=== PATIENT | female | born 1985 | race Caucasian/White ===

== ENCOUNTER → 2017-02-21 | Outpatient (CLI) | payer OTHER ==
--- NOTE | 2017-02-21 15:37 | RADIOLOGY REPORT (SQ) ---
EXAM DESCRIPTION: HYSTEROSALPINGOGRAM; HYSTERO CATH/INJECTION COMPLETED DATE/TIME: 02/21/2017 1:32 pm REASON FOR STUDY: INFERTILITY (N97.9) N97.9 FEMALE INFERTILITY, UNSPECIFIED COMPARISON: None. PROCEDURE: PRE-PROCEDURE: Procedure was explained to the patient. She was told to expect cramping du ring the procedure, and possible spotting post procedure. PROCEDURE: The cervix was prepped in sterile fashion. Under direct visual inspection, the cervix was cannulated with the hysterosalpingogram catheter and contrast injected. TECHNIQUE: Temporal fluoroscopic images acquired during the procedure stored to PACS. FLUOROSCOPY TIME: Less than 1 second 21 digital radiographic images saved to PACS. LIMITATIONS: None. FINDINGS: UTERUS: No identified anomalies. No synechia. RIGHT ADNEXA: Normal size fallopian tube. Free spill of contrast into the peritoneal cavity. LEFT ADNEXA: Normal size fallopian tube. Free spill of contrast into the peritoneal cavity. POST PROCEDURE: The patient tolerated the procedure with no adverse effects. IMPRESSION: NORMAL HYSTEROSALPINGOGRAM. COMMENT: Quality ID [id number]: Final reports for procedures using fluoroscopy that document radiation exp osure indices, or exposure time and number of fluorographic images (if radiation exposure indices are not available) TECHNICAL DOCUMENTATION: JOB ID: [id number] [employer]- All Rights Reserved
== END ==
LOC: RAD 12:48
PROVIDERS: ATTEND Obstetrics & Gynecology
DX: N97.9 Female infertility, unspecified (principal)
CPT/HCPCS: 58340; 74740

== ENCOUNTER 2017-12-06 18:40 | Emergency (ER) | payer OTHER ==
[2017-12-06 18:46] VITALS: BP 137/83
[2017-12-06] MEDS ORDERED: HYDROCODONE/ACETAMINOPHEN 5-325 MG (6 TAB/ER DISP) PO PRN (19:34)
--- NOTE | 2017-12-06 19:36 | ER Document Report ---
ED Respiratory Problem - General Chief Complaint: Painful Cough Stated Complaint: SORE THROAT Time Seen by Provider: 12/06/17 19:11 Mode of Arrival: Ambulatory Information source: Patient Notes: 32-year-old female presented ED for complaint of severe sore throat that is keeping her awake for the last 4 days. She states she went to urgent care today and was diagnosed with walking pneumonia bronchitis. She was treated with Z-[place] Tessalon Perles ibuprofen she has been taken NyQuil she was also given albuterol inhaler and Flonase. She states none of this is helping her sore throat she states she is also gargling with warm water, gargling with mouthwash and nothing is helping with her sore throat. She has not slept in at least 4 days. Patient is alert and oriented respirations regular unlabored she does have a dry cough nonproductive. Her lungs are actually clear. She does have an upper respiratory infection with a sore throat. She does not have any wheeze. TRAVEL OUTSIDE OF THE [place] IN LAST 30 DAYS: No - HPI Patient complains to provider of: Cough, Other Onset: Other - 4 days sore throat Duration: Continuous, Worse/persistent Initiating Event: URI, Other - She states she was diagnosed with walking pneumonia at the urgent care and started on a azithromycin Severity: Moderate Pain Level: 4 Cough: Nonproductive Sputum amount: None At home treatment: Bronchodilators, Inhaled steroids, Oral steroids Associated symptoms: Congestion, Cough, Fever, PND, Runny nose, Sore Throat Similar symptoms previously: Yes Recently seen / treated by doctor: Yes - Urgent care today - Related Data Allergies/Adverse Reactions: No Known Allergies Allergy (Unverified 02/12/15 11:13) Past Medical History - General Information source: Patient - Social History Smoking Status: Former Smoker Cigarette use (# per day): No Chew tobacco use (# tins/day): No Smoking Education Provided: No Frequency of alcohol use: None Drug Abuse: None Lives with: Family Family History: None Patient has suicidal ideation: No Patient has homicidal ideation: No - Past Medical History Cardiac Medical History: Reports: None Pulmonary Medical History: Reports: Hx Bronchitis - Diagnosed urgent care 2017, Hx Pneumonia - Diagnosed with walking pneumonia by urgent care on 2017 EENT Medical History: Reports: None Neurological Medical History: Reports: None Endocrine Medical History: Reports: None Renal/ Medical History: Reports: None Malignancy Medical History: Reports: None GI Medical History: Reports: None Musculoskeltal Medical History: Reports None Skin Medical History: Reports None Psychiatric Medical History: Reports: None Traumatic Medical History: Reports: None Infectious Medical History: Reports: None Surgical Hx: Negative Past Surgical History: Reports: None - Immunizations Immunizations up to date: Yes Hx Diphtheria, Pertussis, Tetanus Vaccination: Yes Review of Systems - Review of Systems Constitutional: Fever, Recent illness EENT: Nose discharge, Sinus pressure, Sinus discharge, Throat pain Respiratory: Cough. denies: Sputum Physical Exam - Vital signs Vitals: Temp Pulse Resp BP Pulse Ox 99.2 F 89 16 137/83 H 100 12/06/17 18:45 12/06/17 18:45 12/06/17 18:45 12/06/17 18:45 12/06/17 18:45 - HEENT Head: Normocephalic, Atraumatic Eyes: Normal Pupils: PERRL Ears: Normal External canal: Normal Tympanic membrane: Normal Sinus: Normal Nasal: Purulent discharge, Swelling Mouth/Lips: Normal Mucous membranes: Normal Pharynx: Post nasal drainage. No: Erythema, Exudate, Retropharyngeal abscess, Tonsillar hypertrophy, Uvular edema, Potential airway comprom. Neck: Normal - Respiratory Respiratory status: No respiratory distress Chest status: Nontender Breath sounds: Nonproductive cough. No: Productive cough, Rales, Rhonchi, Stridor, Wheezing Chest palpation: Normal Course - Re-evaluation Re-evalutation: 12/06/17 20:25 She came to the ED because she states that her throat is so sore that she cannot stand it anymore she cannot sleep and she is coughing keeping her from been able to sleep. Patient was given a [place] dispense pack and told to take 1 each night as needed for sleep due to the sore throat. She was told to use the medications that she was given at the urgent care for her "bronchitis and pneumonia ". - Vital Signs Vital signs: Temp Pulse Resp BP Pulse Ox 99.2 F 89 16 137/83 H 100 12/06/17 18:45 12/06/17 18:45 12/06/17 18:45 12/06/17 18:45 06/26/18 18:45 Discharge - Discharge Clinical Impression: Sore throat (viral) Condition: Stable Disposition: HOME, SELF-CARE Instructions: Family Physicians / Practices Additional Instructions: UPPER RESPIRATORY ILLNESS: You have a viral infection of the respiratory passages -- a "cold." This common infection causes nasal congestion, drainage, and often sore throat and cough. It is highly contagious. The disease usually lasts about 10 to 14 days. There is no "cure" for the viral infection -- it must run its course. If there is a complication, such as bacterial infection in the nose, sinuses, middle ear, or bronchial tubes, antibiotics may be required. The antibiotics won't affect the virus. Drink plenty of fluids. A humidifier may help. An expectorant medication or decongestant may make you more comfortable. Use acetaminophen or ibuprofen for fever or aches. See the doctor if fever persists over two days, if there is any significant worsening of your symptoms, or if you simply fail to improve as expected. COUGH-SUPPRESSANT & EXPECTORANT MEDICATION: You are to use a cough medication as needed for relief of symptoms. This medicine is a combination of an expectorant (to make the mucous thinner and more easily "coughed up") and a cough suppressant (to reduce the frequency of coughing). The cough-suppressant medicine is related to narcotics. You may experience mild nausea and sleepiness. Some patients who are very sensitive to narcotics may have stomach pain from this medicine. Taking the medicine with food reduces these side effects. Do not drive or work with machinery until you know how this medicine affects you. The expectorant should have no side effects. Iodine-containing expectorants (such as organidin) should not be taken by persons with active thyroid disease unless approved by your doctor. Call the doctor if you develop shortness of breath, hives, rash, itching, lightheadedness, or severe nausea and vomiting. Take your medicines that the urgent care prescribed you for your walking pneumonia and your bronchitis. I have given you a [place] dispense pack for your cough and sore throat. Use 1 of these each night for sleep otherwise usually medication you have already been prescribed. Oral Narcotic Medication You have been given a [place] dispense pack for pain control. This medication is a narcotic. It's best taken with food, as nausea can result if taken on an empty stomach. Don't operate machinery or drive within six hours of taking this medication. Do not combine this medicine with alcohol, or with any medication which can cause sedation (such as cold tablets or sleeping pills) unless you get permission from the physician. Narcotics tend to cause constipation. If possible, drink plenty of fluids and eat a diet high in fiber and fruits. Chloraseptic [place] to the throat can also help with your sore throat, you can also try using warm tea with honey and lemon for your sore throat. Salt and soda gargles 1 quart of water 1 tablespoon of salt 1 teaspoon of baking soda Mixed 3 ingredients together and boil for 1 minute Placed in a covered quart jar Use 1/2 ounce of cold solution to gargle 3 times a day FOLLOW-UP CARE: If you have been referred to a physician for follow-up care, call the physician s office for an appointment as you were instructed or within the next two days. If you experience worsening or a significant change in your symptoms, notify the physician immediately or return to the Emergency Department at any time for re-evaluation. Forms: Elevated Blood Pressure Referrals: KEE LOU MD [Primary Care Provider] - Follow up as needed
== END 2017-12-06 19:56 | disposition home or self-care (01) ==
LOC: ER 18:40
DX: J02.9 Acute pharyngitis, unspecified (principal); Z87.891 Personal history of nicotine dependence
CPT/HCPCS: 99283